=== PATIENT | female | born 1965 | race Caucasian/White ===

== ENCOUNTER → 2019-03-16 | Outpatient (CLI) | payer BC ==
--- NOTE | 2019-03-16 13:21 | US ---
EXAMINATION TYPE: US abdomen complete DATE OF EXAM: 03/16/2019 COMPARISON: NONE CLINICAL HISTORY: 53-year-old female R10.9 Abd pain. Epigastric pain TECHNIQUE: Multiple sonographic images of the abdomen are obtained. FINDINGS: EXAM MEASUREMENTS: Liver Length: 19.9 cm Gallbladder Wall: 0.3 cm CBD: 0.6 cm Spleen: 10.8 cm Right Kidney: 11.6 x 4.8 x 5.2 cm Left Kidney: 10.6 x 5.7 x 5.2 cm ONLINE PROGRAM COORDINATOR NOTES: Technical limitations due to patient's body habitus and large amount of overlyin g bowel content Pancreas: Pancreatic tail shadowed out by bowel gas. Visualized portions show no gross abnormality. Liver: enlarged, attenuating Gallbladder: extensive shadowing calculi and sludge. Gallbladder wall borderline thickened at 3.3 mm. No surrounding fluid or abnormal distention seen. Evidence for sonographic Rincon's sign: no CBD: wnl Spleen: wnl Right Kidney: no evidence of hydronephrosis. Left Kidney: no evidence of hydronephrosis. Upper IVC: wnl Abd Aorta: visualized portions appear wnl, bifurcation obscured IMPRESSION: 1. Hepatomegaly (19.9 cm) with severe hepatic steatosis. Correlate with LFTs, lipid profile, and yandel ent risk factors. 2. Extensive cholelithiasis. Borderline gallbladder wall thickening may reflect chronic cholecystitis . No abnormal distention, surrounding fluid, or sonographic Rincon sign to suggest acute cholecystiti s at this time. Clinically correlate.
== END | disposition home or self-care (01) ==
LOC: RADUSMAIN 07:58
PROVIDERS: ATTEND Family Medicine
DX: K76.0 Fatty (change of) liver, not elsewhere classified (principal); K80.20 Calculus of gallbladder without cholecystitis without obstruction
CPT/HCPCS: 76700

== ENCOUNTER → 2019-05-02 | Outpatient (CLI) | payer BC ==
[2019-05-02 14:54] LABS: Basophils # (A) 0.1 k/uL (0-0.2); Basophils % (A) 1 %; Eosinophils # (A) 0.1 k/uL (0-0.7); Eosinophils % (A) 2 %; HCT 45.1 % (34.0-46.0); HGB 14.5 gm/dL (11.4-16.0); Lymphocytes # (A) 1.6 k/uL (1.0-4.8); Lymphocytes % (A) 20 %; MCH 30.5 pg (25.0-35.0); MCHC 32.1 g/dL (31.0-37.0); MCV 95.2 fL (80.0-100.0); Mean Platelet Volume 6.9; Monocytes # (A) 0.4 k/uL (0-1.0); Monocytes % (A) 5 %; Neutrophils # (A) 5.3 k/uL (1.3-7.7); Neutrophils % (A) 70 %; Platelet Count 332 k/uL (150-450); RBC 4.74 m/uL (3.80-5.40); RDW 13.1 % (11.5-15.5); WBC 7.7 k/uL (3.8-10.6)
== END | disposition home or self-care (01) ==
LOC: LABPAT 11:57
PROVIDERS: ATTEND Anesthesiology
DX: Z01.812 Encounter for preprocedural laboratory examination (principal)
CPT/HCPCS: 85025

== ENCOUNTER 2019-05-03 09:01 | Observation (INO) | payer BC ==
--- NOTE | 2019-05-03 08:13 | P.GSHP ---
History of Present Illness H&P Date: 05/03/19 CHIEF COMPLAINT: Cholecystitis HISTORY OF PRESENT ILLNESS: The patient is a 53-year-old female who presents with history of epigastric including right upper quadrant abdominal pain. She underwent diagnostic studies for her gallbladder. Separately her clinical picture was consistent with acute cholecystitis per US gallbladder. Now she presents for surgical intervention. PAST MEDICAL HISTORY: Please see list PAST SURGICAL HISTORY: Please see list MEDICATIONS: Please see list ALLERGIES: Denies. SOCIAL HISTORY: No illicit drug use or recent tobacco use FAMILY HISTORY: Pertinent for gallbladder disease. Has cardiac disease REVIEW OF ORGAN SYSTEMS: CONSTITUTIONAL: No reports of fevers or chills. HEENT: Denies any troubles with the vision or hearing. ENDOCRINE: No reports of hypothyroidism. No diabetes. RESPIRATORY: No recent pneumonias. CARDIOVASCULAR: Denies chest pain or palpitations GI: No blood in stools or constipation. MUSCULOSKELETAL: Has occasional joint pain including back pain. NEURO: No seizure disorders or headaches. No recent stroke. PSYCH: No depression or suicidal ideation. GENITOURINARY: No active blood in urine. No urinary hesitancy. HEMATOLOGIC: No personal or family history of DVTs or pulmonary emboli. SKIN: No skin cancer. PHYSICAL EXAM: VITAL SIGNS: Afebrile vital signs stable GENERAL: Well-developed pleasant in no acute distress. HEENT: No scleral icterus. Extraocular movements grossly intact. Moist buccal mucosa. NECK: Supple without lymphadenopathy. CHEST: Unlabored respirations. Equal bilateral excursions. CARDIOVASCULAR: Regular rate regular rhythm rhythm. Distal 2+ pulses. ABDOMEN: Soft, nondistended. Tender along the epigastrium and right upper quadrant. MUSCULOSKELETAL: No clubbing, cyanosis, or edema. NEURO: Cranial nerves II to XII within normal limits. No focal or lateralizing signs. PSYCH: Alert and oriented to person, place and time. SKIN: Well-perfused good skin turgor. ASSESSMENT: 1. Epigastric and right upper quadrant abdominal pain 2. Acute cholecystitis 3. Symptomatic gallstones. PLAN: 1. Will need a robotic cholecystectomy possible open. Benefits and risks were described. 2. Heparin for DVT prophylaxis 5000 units. 3. Antibiotic prophylaxis. Past Medical History Past Medical History: GERD/Reflux, Liver Disease Additional Past Medical History / Comment(s): Fatty liver. History of Any Multi-Drug Resistant Organisms: None Reported Additional Past Surgical History / Comment(s): [place] teeth extracted. Past Anesthesia/Blood Transfusion Reactions: Motion Sickness Past Psychological History: Anxiety Smoking Status: Never smoker Past Alcohol Use History: Occasional Past Drug Use History: None Reported - Past Family History Father Family Medical History: Cancer Additional Family Medical History / Comment(s): Prostate cancer. Sister(s) Family Medical History: Cancer Additional Family Medical History / Comment(s): Breast cancer. Medications and Allergies Home Medications Medication Instructions Recorded Confirmed Type No Known Home Medications 05/01/19 05/01/19 History Allergies Allergy/AdvReac Type Severity Reaction Status Date / Time No Known Allergies Allergy Verified 05/01/19 13:26
[~2019-05-03 09:01] MED LIST: DEXAMETHASONE SOD PHOSPHATE 10 MG/ML 1 ML VIAL IV ONE; HEPARIN SODIUM,PORCINE 5,000 UNIT/ML 1 ML VIAL SQ ONE; INDOCYANINE GREEN 25 MG VIAL IV STA; LACTATED RINGERS 1,000 ML IV SCH; ONDANSETRON 4 MG/2 ML VIAL IVP ONE
[2019-05-03] MEDS ORDERED: LACTATED RINGERS 1,000 ML IV ONE ×2 (09:20→11:37)
[2019-05-03] MEDS ORDERED: LIDOCAINE 1% 20 ML VIAL (10MG/ML) FOR IV START INTRADERMA ONE (09:20)
[2019-05-03 09:50] LABS: Anion Gap 10 mmol/L; Carbon Dioxide 24 mmol/L (22-30); Chloride 106 mmol/L (98-107); Glucose 124 mg/dL (74-99); Potassium 4.4 mmol/L (3.5-5.1); Sodium 140 mmol/L (137-145)
[2019-05-03 09:51] LABS: ALT 112 U/L (9-52); AST 49 U/L (14-36); African American GFR (CKD) >90 (>60 ml/min/1.73 sqM); Albumin 4.3 g/dL (3.5-5.0); Alkaline Phosphatase 77 U/L (38-126); Blood Urea Nitrogen 18 mg/dL (7-17); Calcium 9.5 mg/dL (8.4-10.2); Total Bilirubin 1.2 mg/dL (0.2-1.3); Total Protein 7.6 g/dL (6.3-8.2)
[2019-05-03] MEDS ORDERED: GLYCOPYRROLATE 0.2 MG/ML 2 ML VIAL ONE (10:25)
[2019-05-03] MEDS ORDERED: LIDOCAINE 1% INJ 10MG/ML (20 ML MDV) ONE (10:25)
[2019-05-03] MEDS ORDERED: NEOSTIGMINE 1 MG/ML 10 ML VIAL ONE (10:25)
[2019-05-03] MEDS ORDERED: fentaNYL (PF) 50 MCG/ML 2 ML AMP ONE (10:25)
[2019-05-03] MEDS ORDERED: KETOROLAC 30 MG/ML 1 ML VIAL ONE (10:25)
[2019-05-03] MEDS ORDERED: KETAMINE 10 MG/ML 20 ML VIAL ONE (10:25)
[2019-05-03] MEDS ORDERED: PROPOFOL 10 MG/ML 20 ML VIAL IV ONE (10:25)
[2019-05-03] MEDS ORDERED: INDOCYANINE GREEN 25 MG VIAL IV ONE (10:25)
[2019-05-03] MEDS ORDERED: ROCURONIUM BROMIDE 10 MG/ML 10 ML VIAL IV ONE (10:25)
[2019-05-03] MEDS ORDERED: SUCCINYLCHOLINE CHLORIDE 100 MG/5 ML SYR IV ONE (10:25)
[2019-05-03] MEDS ORDERED: MIDAZOLAM 2 MG/2 ML VIAL ONE (10:25)
[2019-05-03] MEDS ORDERED: LIDOCAINE 1%-EPI 1:100,000 20 ML VIAL SQ ONE (10:58)
[2019-05-03] MEDS ORDERED: ONDANSETRON 4 MG/2 ML VIAL IVP PRN (12:35)
[2019-05-03] MEDS ORDERED: NALOXONE 0.4 MG/ML 1 ML VIAL IV PRN (12:35)
[2019-05-03] MEDS: HYDROmorphone 0.5 MG/0.5 ML SYRINGE IVP PRN ×4 (12:44→13:16)
--- NOTE | 2019-05-03 12:44 | P.OP ---
Date of Procedure: 05/03/19 Description of Procedure: SURGEON: EMORY PORTILLO MD PREOPERATIVE DIAGNOSES: 1. Right upper quadrant abdominal pain 2. Gallstones 3. Acute cholecystitis 4. Elevated liver enzymes 5. Fatty liver disease 6. Morbid obesity due to excess calories, BMI 42.3 POSTOPERATIVE DIAGNOSES: 1. Right upper quadrant abdominal pain 2. Gallstones 3. Acute cholecystitis 4. Elevated liver enzymes 5. Fatty liver disease 6. Morbid obesity due to excess calories, BMI 42.3 7. Severe hepatomegaly OPERATION: Robotic-assisted da Miranda Xi laparoscopic cholecystectomy, multiport with FIREFLY ESTIMATED BLOOD LOSS: 5 mL. SPECIMENS REMOVED: Gallbladder. COMPLICATIONS: None. OPERATIVE FINDINGS: 1. Severe hepatomegaly adding moderate complexity to the case 30 minutes of dissection INDICATIONS: The patient is a 53-year-old female who presents with acute cholelcystitis. Surgical intervention with a laparoscopic cholecystectomy was described at length including injury to the biliary tree, bleeding, infection, need for further surgery. Informed consent was obtained. Robotic assisted laparoscopic approach was described. Benefits and risks of the procedure including but not limited to bleeding, infection, injury to the biliary tree was described. Informed consent was obtained. DESCRIPTION OF PROCEDURE: Patient was brought to the operating room, placed in supine position. After general induction, the abdomen had been prepped and draped in standard sterile fashion. The robotic da Miranda XI system was primed. After a timeout protocol was performed, the patient had been prepped and draped in standard sterile fashion. The patient was injected with indocyanine green. A 5 mm 0 degrees laparoscopic trocar entry was performed along the left upper quadrant. The abdomen insufflated to 15 mmHg pressure which was tolerated well. Diagnostic laparoscopy demonstrated no injury to bowel viscera or mesentery. The gallbladder had severe hepatomegaly with fatty liver disease completely covering the gallbladder. Next, two 8 mm robotic ports were placed along the right upper abdomen. The camera 8-mm port was maintained along the epigastrium. Another 8 mm port was placed along the left upper abdominal wall after exchanging the 5 mm port. Please note that the ports were placed at least 10 to 15 cm away from the target anatomy of the gallbladder. The robot was docked along the left lateral abdomen. The patient was repositioned in reverse Trendelenburg position. Using a grasper for arm 3, a grasper for arm 4, including hook cautery for arm 1, the robotic system was docked and primed as described. Instruments were interchanged by the licensed investment sales assistant including hook cautery, Bovie cautery and clip appliers. I had sat at the console. Careful dissection was performed for moderate pericholecystic fat identified involving the infundibulum. At the cystic structures, extensive dissection over 35-45 minutes was performed. A dome down technique was done to dissect the gallbladder from the hepatic fossa to the cystic structures. The gallbladder fundus was retracted over the dome of the liver. Using a grasper, the cystic duct including the cystic artery was carefully skeletonized. FIREFLY was used to identify the cystic artery and cystic structures. A critical view of safety was obtained. Large PLASTIC clips were used throughout the entire case. Using a clip eyewear manufacturing supervisor 2 clips were placed proximally, and 1 clip was placed between the infundibulum and cystic duct and divided using cautery. Next, the cystic artery was similarly clipped and cauterized. Electro-Bovie cautery was used to remove the gallbladder from the hepatic fossa. Hemostasis was checked and found to be adequate. The robot was undocked. I re-scrubbed into the case. Using a 10 mm Endo Catch bag via the left upper quadrant incision, the specimen was removed from the abdominal cavity. All pneumoperitoneum instruments were evacuated from the abdominal cavity. The incisions were reapproximated using 4-0 Monocryl in an interrupted subcuticular fashion. Fascial defects were less than 8 mm in size. Please note along the trocar sites, local anesthetic was placed as a field block prior to insertion of all instruments. Liquid glue was applied to the skin. At the end of the procedure needle, sponge, and instrument count had been verified correct by the manager surgical. The patient was transferred to postanesthesia care unit in stable condition. Intraoperative films were shared with the patient's family who were very pleased with the level of care. Plan - Discharge Summary Discharge Rx Participant: Yes New Discharge Prescriptions: No Action No Known Home Medications Discharge Medication List No Known Home Medications 05/01/19 [History]
[2019-05-03] MEDS ORDERED: ONDANSETRON 4 MG/2 ML VIAL IVP ONE (12:45)
[2019-05-03] MEDS ORDERED: diphenhydrAMINE 50 MG/ML 1 ML VIAL IVP ONE (13:00)
[2019-05-03] MEDS: METOCLOPRAMIDE 5 MG/ML 2 ML VIAL IVP SCH ×2 (15:16→17:53)
[2019-05-03 15:35] VITALS: BMI 42.4
[2019-05-03] MEDS ORDERED: INSULIN ASPART (NovoLOG) 100 UNIT/ML VIAL SQ SCH (17:30)
[2019-05-03] MEDS: KETOROLAC 30 MG/ML 1 ML VIAL IVP PRN (17:32)
[2019-05-03] MEDS: SODIUM CHLORIDE 0.9% 1,000 ML IV SCH ×2 (21:02→21:04)
[2019-05-04] MEDS: METOCLOPRAMIDE 5 MG/ML 2 ML VIAL IVP SCH ×2 (00:02→06:07)
[2019-05-04] MEDS: KETOROLAC 30 MG/ML 1 ML VIAL IVP PRN ×2 (00:03→06:07)
[2019-05-04 06:44] LABS: ALT 98 U/L (9-52); AST 47 U/L (14-36); African American GFR (CKD) >90 (>60 ml/min/1.73 sqM); Alkaline Phosphatase 67 U/L (38-126); Anion Gap 10 mmol/L; Blood Urea Nitrogen 10 mg/dL (7-17); Calcium 9.2 mg/dL (8.4-10.2); Carbon Dioxide 22 mmol/L (22-30); Chloride 108 mmol/L (98-107); Glucose 109 mg/dL (74-99); Potassium 4.2 mmol/L (3.5-5.1); Sodium 140 mmol/L (137-145); Total Bilirubin 1.2 mg/dL (0.2-1.3); Total Protein 7.2 g/dL (6.3-8.2)
[2019-05-04] MEDS: HYDROcodone/APAP 5-325MG 1 EACH TAB PO PRN ×2 (07:03→12:22)
[2019-05-04 08:24] VITALS: BP 120/78; PULSE 63; RESP 18; TEMP 98
--- NOTE | 2019-05-04 08:35 | P.DS ---
Providers Date of admission: 05/04/19 00:43 Expected date of discharge: 05/04/19 Attending physician: Nelly Cerna Primary care physician: Ernie Patino - Discharge Diagnosis(es) (1) Elevated liver enzymes Current Visit: Yes Status: Acute (2) Gallstones Current Visit: Yes Status: Acute (3) Fatty liver Current Visit: Yes Status: Acute (4) Hepatomegaly Current Visit: Yes Status: Acute (5) Morbid obesity due to excess calories Current Visit: Yes Status: Acute (6) BMI greater than 40 Current Visit: Yes Status: Acute Hospital Course: POSTOPERATIVE DIAGNOSES: 1. Right upper quadrant abdominal pain 2. Gallstones 3. Acute cholecystitis 4. Elevated liver enzymes 5. Fatty liver disease 6. Morbid obesity due to excess calories, BMI 42.3 7. Severe hepatomegaly OPERATION: Robotic-assisted da Miranda Xi laparoscopic cholecystectomy, multiport with FIREFLY ESTIMATED BLOOD LOSS: 5 mL. SPECIMENS REMOVED: Gallbladder. COMPLICATIONS: None. OPERATIVE FINDINGS: 1. Severe hepatomegaly adding moderate complexity to the case 30 minutes of dissection COURSE: The patient is a 53-year-old female who presented with acute cholelcystitis due to gallstones. Post-operative findings of acute cholecystitis, hepatomegaly and elevated liver enzymes were confirmed hence her admission. Post-op her pain was well controlled. She was tolerating diet. Blood work showed stable if not improvement of her LFTS. Discharge instructions were reviewed and she was stable for discharge. Laboratory Last Values Sodium 140 mmol/L (137-145) 05/04/19 06:12 Potassium 4.2 mmol/L (3.5-5.1) 05/04/19 06:12 Chloride 108 mmol/L (98-107) H 05/04/19 06:12 Carbon Dioxide 22 mmol/L (22-30) 05/04/19 06:12 Anion Gap 10 mmol/L 05/04/19 06:12 BUN 10 mg/dL (7-17) 05/04/19 06:12 Creatinine 0.70 mg/dL (0.52-1.04) 05/04/19 06:12 Est GFR (CKD-EPI)AfAm >90 (>60 ml/min/1.73 sqM) 05/04/19 06:12 Est GFR (CKD-EPI)NonAf >90 (>60 ml/min/1.73 sqM) 05/04/19 06:12 Glucose 109 mg/dL (74-99) H 05/04/19 06:12 Calcium 9.2 mg/dL (8.4-10.2) 05/04/19 06:12 Total Bilirubin 1.2 mg/dL (0.2-1.3) 05/04/19 06:12 AST 47 U/L (14-36) H 05/04/19 06:12 ALT 98 U/L (9-52) H 05/04/19 06:12 Alkaline Phosphatase 67 U/L (38-126) 05/04/19 06:12 Total Protein 7.2 g/dL (6.3-8.2) 05/04/19 06:12 Albumin 4.0 g/dL (3.5-5.0) 05/04/19 06:12 Patient Condition at Discharge: Good Plan - Discharge Summary Discharge Rx Participant: Yes New Discharge Prescriptions: New Ibuprofen [Motrin] 600 mg PO Q8HR PRN #30 tab PRN Reason: pain Acetaminophen Tab [Tylenol Tab] 500 mg PO Q6H PRN #30 tablet PRN Reason: Pain Discharge Medication List Acetaminophen Tab [Tylenol Tab] 500 mg PO Q6H PRN #30 tablet 05/03/19 [Rx] Ibuprofen [Motrin] 600 mg PO Q8HR PRN #30 tab 05/03/19 [Rx] Follow up Appointment(s)/Referral(s): Nelly Cerna MD [STAFF PHYSICIAN] - 05/22/19 4:20 pm Patient Instructions/Handouts: Low Fat Diet (GEN), Pain Management (DC), Laparoscopic Cholecystectomy (DC) Activity/Diet/Wound Care/Special Instructions: No lifting for 10 pounds for 2 weeks, 05/17/2019. May shower. No bathtub soaks for 2 weeks until 05/17/19. Discharge Disposition: HOME SELF-CARE
[2019-05-04] MEDS ORDERED: ENOXAPARIN 40 MG/0.4 ML SYRINGE SQ SCH (09:00)
== END 2019-05-04 12:50 | disposition home or self-care (01) ==
LOC: OR 09:01 → 6PED 13:28 → OR 05-04 00:42 → 6PED 05-04 00:43
PROVIDERS: ADMIT Surgery Plastic and Reconstructive Surgery; ATTEND Surgery Plastic and Reconstructive Surgery
DX: K80.12 Calculus of gallbladder with acute and chronic cholecystitis without obstruction (principal); K21.9 Gastro-esophageal reflux disease without esophagitis; K76.0 Fatty (change of) liver, not elsewhere classified; E66.01 Morbid (severe) obesity due to excess calories; Z68.41 Body mass index [BMI] 40.0-44.9, adult; F41.9 Anxiety disorder, unspecified; Z80.3 Family history of malignant neoplasm of breast; Z80.42 Family history of malignant neoplasm of prostate
CPT/HCPCS: 47562; S2900; 80053; 88304; 93005

== ENCOUNTER 2019-05-30 10:00 | Day surgery (SDC) | payer BC ==
[2019-05-29 11:01] VITALS: BMI 42.3
--- NOTE | 2019-05-30 05:08 | P.GSHP ---
History of Present Illness H&P Date: 05/30/19 CHIEF COMPLAINT: Colon screen HISTORY OF PRESENT ILLNESS: The patient is a 53-year-old female who presents for colon screen. Lower endoscopy was offered for further evaluation and management. PAST MEDICAL HISTORY: Please see list. PAST SURGICAL HISTORY: Please see list. MEDICATIONS: Please see list. ALLERGIES: Please see list. SOCIAL HISTORY: No illicit drug use FAMILY HISTORY: No reports of Crohn disease or ulcerative colitis. REVIEW OF ORGAN SYSTEMS: CONSTITUTIONAL: No reports of fevers or chills. PHYSICAL EXAM: VITAL SIGNS: Stable GENERAL: Well-developed pleasant in no acute distress. HEENT: No scleral icterus. Extraocular movements grossly intact. Moist buccal mucosa. NECK: Supple without lymphadenopathy. CHEST: Unlabored respirations. Equal bilateral excursions. CARDIOVASCULAR: Regular rate and rhythm. Distal 2+ pulses. ABDOMEN: Soft, nontender, nondistended. MUSCULOSKELETAL: No clubbing, cyanosis, or edema. ASSESSMENT: 1. Colon screen. PLAN: 1. Recommend proceeding with a lower endoscopy Past Medical History Past Medical History: GERD/Reflux, Liver Disease Additional Past Medical History / Comment(s): Fatty liver. History of Any Multi-Drug Resistant Organisms: None Reported Past Surgical History: Cholecystectomy Additional Past Surgical History / Comment(s): [employer] teeth extracted. Dwayne white 05-03-2019 Past Anesthesia/Blood Transfusion Reactions: Motion Sickness Smoking Status: Never smoker - Past Family History Father Family Medical History: Cancer Additional Family Medical History / Comment(s): Prostate cancer. Sister(s) Family Medical History: Cancer Additional Family Medical History / Comment(s): Breast cancer. Medications and Allergies Home Medications Medication Instructions Recorded Confirmed Type Acetaminophen Tab [Tylenol Tab] 500 mg PO Q6H PRN #30 tablet 05/03/19 05/29/19 Rx Ibuprofen [Motrin] 600 mg PO Q8HR PRN #30 tab 05/03/19 05/29/19 Rx Allergies Allergy/AdvReac Type Severity Reaction Status Date / Time No Known Allergies Allergy Verified 05/29/19 10:52
[2019-05-30 10:25] VITALS: TEMP 97.8
[2019-05-30] MEDS ORDERED: LIDOCAINE 1% 20 ML VIAL (10MG/ML) FOR IV START INTRADERMA ONE (10:35)
[2019-05-30] MEDS ORDERED: LACTATED RINGERS 1,000 ML IV ONE ×2 (10:35)
[2019-05-30] MEDS ORDERED: PROPOFOL 10 MG/ML 20 ML VIAL IV ONE (11:01)
[2019-05-30] MEDS ORDERED: LIDOCAINE 1% INJ 10MG/ML (20 ML MDV) ONE (11:01)
--- NOTE | 2019-05-30 11:23 | P.PCN ---
Date of Procedure: 05/30/19 Description of Procedure: PREOPERATIVE DIAGNOSIS: Colonoscopy screening, first POSTOPERATIVE DIAGNOSIS: Colonoscopy screening, first OPERATION: Colonoscopy to the ileocecal valve and appendiceal orifice. SURGEON: Nelly Cerna MD. ANESTHESIA: MAC. INDICATIONS: The patient is a 53-year-old female who presents for her first colonoscopy screening. Benefits and risks were described and informed consent was obtained. DESCRIPTION OF PROCEDURE: The patient had undergone Suprep. She had been brought into the operating room and laid in the left lateral decubitus position. After adequate intravenous sedation, the rectum was examined with 2% lidocaine jelly. No external hemorrhoids were encountered. The rectal tone was within normal limits. No lesions were palpated in the rectal vault. An Olympus colonoscope was advanced until the ileocecal valve and appendiceal orifice were clearly viewed. The prep was excellent with clear visualization of the mucosal folds. The scope was removed with visualization of each mucosal fold. No scattered diverticulosis was encountered. No colonic polyps were found. No evidence of focal colitis was found. Retroflexion of the scope demonstrated no internal hemorrhoids. The colon was desufflated. The patient had tolerated the procedure well. Withdrawal time was over 6 minutes. FINDINGS: Aronchick preparation quality scale 1 (1-5) No internal hemorrhoids No external prolapsed hemorrhoids. No arteriovenous malformations. No adenomatous polyps. No focal colitis. RECOMMENDATIONS: Lower endoscopy every , 2028 or Cologaurd Plan - Discharge Summary Discharge Rx Participant: No New Discharge Prescriptions: No Action Ibuprofen [Motrin] 600 mg PO Q8HR PRN #30 tab PRN Reason: pain Acetaminophen Tab [Tylenol Tab] 500 mg PO Q6H PRN #30 tablet PRN Reason: Pain Discharge Medication List Acetaminophen Tab [Tylenol Tab] 500 mg PO Q6H PRN #30 tablet 05/03/19 [Rx] Ibuprofen [Motrin] 600 mg PO Q8HR PRN #30 tab 05/03/19 [Rx] Follow up Appointment(s)/Referral(s): Nelly Cerna MD [STAFF PHYSICIAN] - As Needed Patient Instructions/Handouts: *[facility] - (Anesthesia) Endoscopy Discharge Instructions Activity/Diet/Wound Care/Special Instructions: Repeat colonoscopy in 10 years, 2028 or Cologaurd Discharge Disposition: HOME SELF-CARE
[2019-05-30 11:51] VITALS: RESP 16
[2019-05-30 11:53] VITALS: BP 108/63; PULSE 63
== END 2019-05-30 12:11 | disposition home or self-care (01) ==
LOC: ORWHC2ENDO 10:00
PROVIDERS: ATTEND Surgery Plastic and Reconstructive Surgery
DX: Z12.11 Encounter for screening for malignant neoplasm of colon (principal); K21.9 Gastro-esophageal reflux disease without esophagitis; K76.0 Fatty (change of) liver, not elsewhere classified; Z90.49 Acquired absence of other specified parts of digestive tract; Z98.818 Other dental procedure status; Z80.42 Family history of malignant neoplasm of prostate; Z80.3 Family history of malignant neoplasm of breast
CPT/HCPCS: J2001; J2704; G0121